=== PATIENT | female | born 1980 | race Caucasian/White ===

== ENCOUNTER → 2016-08-27 | Outpatient (REF) | LOC: WSOH 13:12 → WSPT 13:15 | DX: Z02.1 Encounter for pre-employment examination (principal) ==

== ENCOUNTER → 2016-09-03 | Outpatient (REF) | LOC: WSOH 09:40 | DX: Z00.00 Encounter for general adult medical examination without abnormal findings (principal) ==

== ENCOUNTER → 2016-10-29 | Outpatient (REF) | LOC: WSOH 07:54 | DX: Z02.89 Encounter for other administrative examinations (principal) ==

== ENCOUNTER 2017-01-28 14:46 | Outpatient (RCR) | payer OTHER | END 2017-02-14 13:58 | disposition still patient (30) | LOC: WSOH 14:46 | DX: Z77.21 Contact with and (suspected) exposure to potentially hazardous body fluids (principal); Y99.0 Civilian activity done for income or pay ==

== ENCOUNTER → 2017-01-28 | Outpatient (REF) | LOC: WSOH 14:49 | DX: Z02.89 Encounter for other administrative examinations (principal) ==

== ENCOUNTER → 2017-01-29 | Outpatient (REF) | LOC: WSOH 17:15 | DX: Z02.89 Encounter for other administrative examinations (principal) ==

== ENCOUNTER → 2017-12-15 | Outpatient (CLI) | payer OTHER | LOC: COL.LAB 12:15 | DX: N89.8 Other specified noninflammatory disorders of vagina (principal) ==